=== PATIENT | female | born 1970 ===

== ENCOUNTER 2016-07-06 13:13 | Emergency (ER) | payer OTHER ==
[2016-07-06 13:20] VITALS: TEMP 98; O2SAT 99
[2016-07-06 14:33] LABS: BASO # 0.1 K/uL (0.0-0.2); BASO % 1.2 % (0.0-2.0); EOS # 0.1 K/uL (0.0-0.7); EOS % 1.7 % (0.0-4.0); HEMATOCRIT 38.2 % (34.0-47.0); LYMPH # 1.8 K/uL (1.0-4.3); LYMPH % 29.8 % (20.0-40.0); MEAN CELL VOLUME 94.1 fl (81.0-99.0); MEAN CORPUSCULAR HEMOGLOBIN 30.1 pg (27.0-31.0); MEAN PLATELET VOLUME 8.5 fl (7.2-11.7); MONO # 0.5 K/uL (0.0-0.8); MONO % 8.3 % (0.0-10.0); NEUT # 3.6 K/uL (1.8-7.0); NRBC % 0.1 % (0.0-0.0); RED CELL DISTRIBUTION WIDTH 13.8 % (11.5-14.5); WHITE BLOOD COUNT 6.2 K/uL (4.8-10.8)
[2016-07-06 14:44] LABS: ALB/GLOB RATIO 1.1 (1.0-2.1); ALKALINE PHOSPHATASE 60 U/L (38-126); ALT/SGPT 25 U/L (9-52); AST/SGOT 25 U/L (14-36); BILIRUBIN,TOTAL 0.5 mg/dl (0.2-1.3); BLOOD UREA NITROGEN 14 mg/dl (7-17); CALCIUM 9.4 mg/dL (8.4-10.2); CARBON DIOXIDE 25 mmol/L (22-30); CHLORIDE 104 mmol/L (98-107); GFR AFRICAN-AMERICAN > 60; GLUCOSE,RANDOM 84 mg/dL (65-105); POTASSIUM 3.8 MMOL/L (3.6-5.0); SODIUM 136 mmol/l (132-148); TOTAL PROTEIN 8.2 G/DL (6.3-8.2)
[2016-07-06 14:46] LABS: RBC URINE < 1 /hpf (0-3); URINE BILIRUBIN NEGATIVE (NEGATIVE); URINE BLOOD NEGATIVE (NEGATIVE); URINE COLOR STRAW (YELLOW); URINE GLUCOSE (UA) NEG (Normal); URINE KETONE NEGATIVE (NEGATIVE); URINE LEUKOCYTE ESTERASE NEG Leu/uL (Negative); URINE PROTEIN NEGATIVE (NEGATIVE); URINE UROBILINOGEN 0.2-1.0 mg/dL (0.2-1.0); WBC URINE < 1 /hpf (0-5)
--- NOTE | 2016-07-06 15:00 | ED PDOC ---
HPI: Abdomen Time Seen by Provider: 07/06/16 13:40 Chief Complaint (Nursing): Abdominal Pain Chief Complaint (Provider): ABDOMINAL PAIN History Per: Patient (46 Y/O FEMALE UNDOMICILED WITH INTERMITTENT LEFT LOWER QUADRANT PAIN ASSOCIATED WITH URINARY EFFORT X 4 WEEKS. DENIES ANY HEMATURIA/ FEVERS/CHILLS/VOMITING/DIARRHEA. PATIENT HAS BEEN SEEN BY [facility] SALES CLERK SUPERVISOR WITH PELVIC EXAM EVALUATION AND PRESCRIBED 1 WEEK OF ANTIBIOTICS (UNSURE OF NAME). PATIENT STATES SHE HAS H/O KIDNEY STONE WITH SUBSEQUENT LITHOTRIPSY AND CONCERNED SHE IS AFFLICTED WITH RENAL COLIC. OTHERWISE DENIES VAGINAL DISCHARGE /DENIES ANY RECENT NEW SEXUAL PARTNERS.) Past Medical History Reviewed: Historical Data, Nursing Documentation, Vital Signs Vital Signs: Last Vital Signs Temp 98.0 F 07/06/16 13:18 Pulse 80 07/06/16 13:18 Resp 19 07/06/16 13:18 BP 129/89 07/06/16 13:18 Pulse Ox 99 07/06/16 17:25 - Allergies Allergies/Adverse Reactions: Allergies Allergy/AdvReac Type Severity Reaction Status Date / Time prochlorperazine Allergy paralysis Verified 07/06/16 13:17 [From Compazine] prochlorperazine edisylate Allergy paralysis Verified 07/06/16 13:17 [From Compazine] prochlorperazine maleate Allergy paralysis Verified 07/06/16 13:17 [From Compazine] hair dye Allergy RASH Uncoded 07/06/16 13:17 opiates Allergy VOMITING Uncoded 07/06/16 13:17 Review of Systems ROS Statement: Except As Marked, All Systems Reviewed And Found Negative Physical Exam - Reviewed Nursing Documentation Reviewed: Yes Vital Signs Reviewed: Yes - Physical Exam Appears: Positive for: Well, Non-toxic, No Acute Distress Head Exam: Positive for: ATRAUMATIC, NORMAL INSPECTION, NORMOCEPHALIC Skin: Positive for: Normal Color, Warm, DRY Eye Exam: Positive for: EOMI, Normal appearance, PERRL ENT: Positive for: Normal ENT Inspection Neck: Positive for: Normal, Painless ROM Cardiovascular/Chest: Positive for: Regular Rate, Rhythm Respiratory: Positive for: CNT, Normal Breath Sounds Gastrointestinal/Abdominal: Positive for: Normal Exam, Bowel Sounds, Soft Pelvic Exam: Positive for: Tender Adnexa (?MINIMAL LEFT ADNEXAL TENDERNESS NOTED.) Back: Positive for: Normal Inspection. Negative for: L CVA Tenderness, R CVA Tenderness Extremity: Positive for: Normal ROM Neurologic/Psych: Positive for: Alert, Oriented - Laboratory Results Result Diagrams: 07/06/16 14:10 07/06/16 14:10 Urine POC: Negative Urine dip results: Negative for: Leukocyte Esterase, Blood, Nitrate, Ketones, Glucose, Bilirubin - ECG O2 Sat by Pulse Oximetry: 99 Medical Decision Making Medical Decision Makin:58 CT AP scan (aborted) PROCEDURE: Aborted CT scan HISTORY: r/o kidney stone Patient had barium swallow yesterday. Residual contrast. COMPARISON: None available. TECHNIQUE: CT scan could not be obtained. Community Resource Officer image shows contrast throughout the colon and appendix. Contrast would limit examination for renal calculi. Therefore, examination was not performed. 16:41 Abdomen Xray FINDINGS: BOWEL: Single supine radiograph of the abdomen was performed. Normal. No obstruction. No free air. Oral contrast is seen in the colon and appendix. No bowel dilatation is seen. BONES: Normal. OTHER FINDINGS: None. IMPRESSION: Oral contrast remains within the colon from patient's recent barium exam. 16:46 Renal ultrasound FINDINGS: RIGHT KIDNEY: Measures: 9.3 x 4.8 x 4.3 cm. Normal in size, contour and echogenicity. No stone, solid mass lesion or hydronephrosis visualized. LEFT KIDNEY: Measures: 9.8 x 4.3 x 4.6 cm. Left kidney is normal in overall size and echogenicity. There is evidence of a 2.3 centimeter x 2.3 centimeter by 2.2 centimeter hypoechoic cyst in the parapelvic area of the upper to midpole region of the right kidney. No solid lesions are seen. No renal calculus. There is some mild left renal pelvic fullness appreciated although no gross hydronephrosis is seen. OTHER FINDINGS: None. IMPRESSION: Left renal cyst. Mild left renal pelvic fullness without gross hydronephrosis. Kidneys are normal in size. 16:49 Transvaginal ultrasound FINDINGS: UTERUS: Measures 9.0 x 5.4 x 5.3 cm. Normal in size and appearance. Small 1.6 centimeter x 1.5 centimeter x 1.5 centimeter fundal fibroid is seen on the left side of the uterus. ENDOMETRIUM: Measures 7 mm in diameter. Unremarkable. CERVIX: No cervical abnormality identified. RIGHT OVARY: Measures 2.3 x 1.8 x 2.1 cm. Small probable follicular cyst is seen in the right ovary measuring 8 millimeters x 5 millimeters in size. Normal flow was seen in the right ovary. No fluid in the right side of the cul-de-sac. LEFT OVARY: Measures 4.6 x 2.8 x 2.6 cm. No solid mass. Normal flow. FREE FLUID: No significant free fluid noted. OTHER FINDINGS: None. IMPRESSION: Unremarkable pelvic ultrasound. Small fundal fibroid. Disposition - Clinical Impression Clinical Impression: Abdominal pain in female - Patient ED Disposition Is Patient to be Admitted: No - Disposition [facility] Disposition: Routine/Home Disposition Time: 17:14 Condition: FAIR Instructions: Pelvic Pain in Women (ED)
--- NOTE | 2016-07-06 16:00 | CT ---
PROCEDURE: Aborted CT scan HISTORY: r/o kidney stone Patient had barium swallow yesterday. Residual contrast. COMPARISON: None available. TECHNIQUE: CT scan could not be obtained. Corporate Securities Research Analyst image shows contrast throughout the colon and appendix. Contrast would limit examination for renal calculi. Therefore, examination was not performed. FINDINGS: IMPRESSION:
--- NOTE | 2016-07-06 16:43 | RAD ---
HISTORY: ABDOMINAL PAIN COMPARISON: No prior. FINDINGS: BOWEL: Single supine radiograph of the abdomen was performed. Normal. No obstruction. No free air. Oral contrast is seen in the colon and appendix. No bowel dilatation is seen. BONES: Normal. OTHER FINDINGS: None. IMPRESSION: Oral contrast remains within the colon from patient's recent barium exam.
--- NOTE | 2016-07-06 16:47 | US ---
PROCEDURE: Ultrasound of the Kidneys HISTORY: EVALUATE FOR HYDRONEPHROSIS COMPARISON: None available. TECHNIQUE: Sonogram of the kidneys. FINDINGS: RIGHT KIDNEY: Measures: 9.3 x 4.8 x 4.3 cm. Normal in size, contour and echogenicity. No stone, solid mass lesion or hydronephrosis visualized. LEFT KIDNEY: Measures: 9.8 x 4.3 x 4.6 cm. Left kidney is normal in overall size and echogenicity. There is evidence of a 2.3 centimeter x 2.3 centimeter by 2.2 centimeter hypoechoic cyst in the parapelvic area of the upper to midpole region of the right kidney. No solid lesions are seen. No renal calculus. There is some mild left renal pelvic fullness appreciated although no gross hydronephrosis is seen. OTHER FINDINGS: None. IMPRESSION: Left renal cyst. Mild left renal pelvic fullness without gross hydronephrosis. Kidneys are normal in size.
--- NOTE | 2016-07-06 16:50 | US ---
HISTORY: LEFT ADNEXAL PAIN COMPARISON: None available. TECHNIQUE: Real-time transvaginal ultrasound examination of the pelvis was performed. FINDINGS: UTERUS: Measures 9.0 x 5.4 x 5.3 cm. Normal in size and appearance. Small 1.6 centimeter x 1.5 centimeter x 1.5 centimeter fundal fibroid is seen on the left side of the uterus. ENDOMETRIUM: Measures 7 mm in diameter. Unremarkable. CERVIX: No cervical abnormality identified. RIGHT OVARY: Measures 2.3 x 1.8 x 2.1 cm. Small probable follicular cyst is seen in the right ovary measuring 8 millimeters x 5 millimeters in size. Normal flow was seen in the right ovary. No fluid in the right side of the cul-de-sac. LEFT OVARY: Measures 4.6 x 2.8 x 2.6 cm. No solid mass. Normal flow. FREE FLUID: No significant free fluid noted. OTHER FINDINGS: None. IMPRESSION: Unremarkable pelvic ultrasound. Small fundal fibroid.
[2016-07-06 17:50] VITALS: BP 124/78; PULSE 77; RESP 16
== END 2016-07-06 17:49 | disposition home or self-care (01) ==
LOC: H.ER 13:13
DX: D25.9 Leiomyoma of uterus, unspecified (principal); R10.2 Pelvic and perineal pain

== ENCOUNTER 2017-04-10 16:23 | Inpatient (IN) | payer MEDICAID, OTHER ==
--- NOTE | 2017-04-10 18:21 | ED PDOC ---
HPI: Headache Time Seen by Provider: 04/10/17 17:04 Chief Complaint (Nursing): Headache Chief Complaint (Provider): Headache History Per: Patient History/Exam Limitations: no limitations Onset/Duration Of Symptoms: Days (x4) Current Symptoms Are (Timing): Still Present Additional Complaint(s): Keny Mcnulty is a 46 year old female with no significant past medical history who presents to the ED due to right facial swelling x4 days. Patient states she woke up Friday with a swollen right eye, but did not think it was serious and attributed it to allergies. She says the following day, she woke up with her right cheek also swollen and the right side of her face felt funny. States she took allergy medication upon the recommendation of her roommate, and as of yesterday the swelling somewhat subsided, but still persists. Notes as of today she also has right arm and right leg pain in addition to a persistent headache all around her head. States it feels like she has a helmet squeezing her head. Denies fever, cough, runny nose, and sinus pain. Reports she had bad diarrhea a week ago that spontaneously resolved. PMD: None NIHSS Stroke Scale - Date/Time Evaluation Performed Date Performed: 04/10/17 Time Performed: 17:00 When Was NIHSS Performed: Baseline - How Severe is the Stroke Level of Consciousness: 0=Alert LOC to Questions: 0=Both comments correct LOC to commands: 0=Obeys both correctly Best Gaze: 0=Normal Visual: 0=No visual loss Facial: 1=Minor asymmetry Motor Arm - Left: 0=No drift Motor Arm - Right: 0=No drift Motor Leg - Left: 0=No drift Motor Leg - Right: 0=No drift Limb Ataxia: 0=Absent Sensory: 0=Normal Best Language: 0=No aphasia Dysarthia: 0=Normal articulation Extinction & Inattention (Neglect): 0=Normal, no object Score: 1 Past Medical History Reviewed: Historical Data, Nursing Documentation, Vital Signs Vital Signs: Last Vital Signs Temp 98.3 F 04/10/17 16:49 Pulse 82 04/10/17 16:49 Resp 16 04/10/17 16:49 BP 138/87 04/10/17 16:49 Pulse Ox 99 04/10/17 16:49 - Medical History PMH: No Chronic Diseases - Family History Family History: States: Unknown Family Hx - Social History Current smoker - smoking cessation education provided: No Alcohol: None Drugs: Denies - Home Medications Home Medications: Ambulatory Orders Medication Instructions Recorded Acetaminophen [Tylenol 325mg tab] 650 mg PO Q6 PRN tab 04/11/17 Magnesium Oxide [Mag-Ox] 400 mg PO BID #60 tab 04/11/17 - Allergies Allergies/Adverse Reactions: Allergies Allergy/AdvReac Type Severity Reaction Status Date / Time prochlorperazine Allergy paralysis Verified 07/06/16 13:17 [From Compazine] prochlorperazine edisylate Allergy paralysis Verified 07/06/16 13:17 [From Compazine] prochlorperazine maleate Allergy paralysis Verified 07/06/16 13:17 [From Compazine] hair dye Allergy RASH Uncoded 07/06/16 13:17 opiates Allergy VOMITING Uncoded 07/06/16 13:17 Review of Systems ROS Statement: Except As Marked, All Systems Reviewed And Found Negative Constitutional: Negative for: Fever Eyes: Positive for: Eyelid Inflammation (right) ENT: Positive for: Other (right cheek swelling). Negative for: Nose Pain, Nose Discharge Respiratory: Negative for: Cough Musculoskeletal: Positive for: Arm Pain (right), Leg Pain (right) Neurological: Positive for: Headache Physical Exam - Reviewed Nursing Documentation Reviewed: Yes Vital Signs Reviewed: Yes - Physical Exam Appears: Positive for: Non-toxic, No Acute Distress Head Exam: Positive for: ATRAUMATIC, NORMOCEPHALIC Skin: Positive for: Warm, Dry Eye Exam: Positive for: EOMI, PERRL ENT: Positive for: Pharynx Is (clear). Negative for: Pharyngeal Erythema, Tonsillar Exudate Neck: Positive for: Painless ROM, Supple Cardiovascular/Chest: Positive for: Regular Rate, Rhythm, Chest Non Tender Respiratory: Positive for: Normal Breath Sounds. Negative for: Wheezing Gastrointestinal/Abdominal: Positive for: Soft. Negative for: Tenderness Extremity: Positive for: Normal ROM. Negative for: Deformity Lymphatic: Negative for: Adenopathy Neurologic/Psych: Positive for: Alert, director of consumer affairs II-XII (intact), Oriented (x3), Gait (steady), Facial Droop (subtle RIGHT). Negative for: Motor/Sensory Deficits, Aphasia - Laboratory Results Result Diagrams: 04/11/17 04:20 04/11/17 04:20 - ECG ECG: Positive for: Interpreted By Mi ECG Rhythm: Positive for: Normal QRS, Normal ST Segment, Sinus Rhythm O2 Sat by Pulse Oximetry: 99 (RA) Pulse Ox Interpretation: Normal - Radiology X-Ray: Interpreted by Mi X-Ray Interpretation: No Acute Disease - Physician Consult Information Physician Contacted: Clifford De La Rosa (Neuro) Medical Decision Making Medical Decision Making: Time: 17:35 Initial Impression: Right facial swelling vs. weakness. Differential diagnoses include, but are not limited to [place] palsy, atypical migraine, brain malignancy, vasculitis --CT Head w/o contrast --CMP --Magnesium --Phosphorus --TSH --ED urine --ED urine dipstick --CBC w/ differential --IV insertion --Reevaluation Time: 20:02 CT Head Findings: BRAIN: Small 6 mm area of low density in the left posterior frontal subcortical white matter, image 50 of series 601. No significant acute abnormality identified. No acute hemorrhage seen within the brain. No acute extra-axial fluid collections visualized. No evidence of significant mass effect within the brain. Normal montague-white matter differentiation. VENTRICLES: No evidence of significant hydrocephalous. BONES/JOINTS: No acute fractures or other acute bony abnormality noted. SOFT TISSUES: No acute abnormality of the visualized soft tissues is seen. SINUSES: Visualized paranasal sinuses appear clear. MASTOID AIR CELLS: Mastoid air cells appear clear. IMPRESSION: -No acute findings seen within the brain. -Small left frontal white matter lesion. This is nonspecific in appearance, and could be secondary to mild chronic ischemic hangs. In a patient of this age, however, other etiologies of white matter disease, including demyelinating disease, are not excluded. Consider a non-emergent MRI of the brain for further workup, as clinically indicated. -See above for remaining findings. Labs unremarkable. DW pt findings and need for further inpatient evaluation. Pt may be having acute CVA or multiple sclerosis. Pt now reports that over the last year she has has intermittent episodes of different neurologic symptoms and twice made and missed appointment with neurologist. At this time need hospitalization for full workup and management for worsening acute symptoms. Scribe Attestation: Documented by Tomer Andersen acting as a scribe for Lynda Hager MD. Scribe Attestation: All medical record entries made by the Scribe were at my direction and personally dictated by me. I have reviewed the chart and agree that the record accurately reflects my personal performance of the history, physical exam, medical decision making, and the department course for this patient. I have also personally directed, reviewed, and agree with the discharge instructions and disposition. Disposition - Clinical Impression Clinical Impression: Weakness, Brain lesion Discussed With : Eriberto Martins Doctor Will See Patient In The: Hospital Counseled Patient/Family Regarding: Studies Performed, Diagnosis - Disposition Disposition Time: 20:30 Condition: GUARDED - Pt Status Changed To: Hospital Disposition Of: Inpatient - Admit Certification Admit to Inpatient:: After my assessment, the patient will require hospitalization for at least two midnights. This is because of the severity of symptoms shown, intensity of services needed, and/or the medical risk in this patient being treated as an outpatient. - POA Present On Arrival: None
[2017-04-10 18:48] LABS: BASO % 0.8 % (0.0-2.0); EOS # 0.2 K/uL (0.0-0.7); HEMOGLOBIN 12.8 g/dL (12.0-16.0); LYMPH # 1.4 K/uL (1.0-4.3); LYMPH % 24.7 % (20.0-40.0); MEAN CELL VOLUME 94.3 fl (81.0-99.0); MEAN CORPUSCULAR HEMOGLOBIN 31.2 pg (27.0-31.0); MEAN CORPUSCULAR HGB CONC 33.1 g/dL (33.0-37.0); MEAN PLATELET VOLUME 7.6 fl (7.2-11.7); MONO # 0.3 K/uL (0.0-0.8); MONO % 6.1 % (0.0-10.0); NEUT # 3.7 K/uL (1.8-7.0); NEUT % 64.4 % (50.0-75.0); RBC 4.11 Mil/uL (3.80-5.20); RED CELL DISTRIBUTION WIDTH 13.3 % (11.5-14.5); WHITE BLOOD COUNT 5.7 K/uL (4.8-10.8)
[2017-04-10 19:07] LABS: ALB/GLOB RATIO 1.2 (1.0-2.1); ALBUMIN 4.3 g/dL (3.5-5.0); ALT/SGPT 26 U/L (9-52); AST/SGOT 20 U/L (14-36); BLOOD UREA NITROGEN 12 mg/dl (7-17); CALCIUM 9.7 mg/dL (8.4-10.2); GFR AFRICAN-AMERICAN > 60; GFR NON-AFRICAN AMERICAN > 60
--- NOTE | 2017-04-10 20:02 | CT ---
EXAM: CT Head Without Intravenous Contrast EXAM DATE/TIME: 04/10/2017 5:35 PM CLINICAL HISTORY: 46 years old, female; Signs and symptoms; Weakness, facial; Additional info: Right face/arm/leg symptoms TECHNIQUE: Axial computed tomography images of the head/brain without intravenous contrast. All CT scans at this facility use one or more dose reduction techniques, viz.: automated exposure control; ma/kV adjustment per patient size (including targeted exams where dose is matched to indication; i.e. head); or iterative reconstruction technique. Coronal and sagittal reformatted images were created and reviewed. COMPARISON: No relevant prior studies available. FINDINGS: BRAIN: Small 6 mm area of low density in the left posterior frontal subcortical white matter, image 50 of series 601. No significant acute abnormality identified. No acute hemorrhage seen within the brain. No acute extra-axial fluid collections visualized. No evidence of significant mass effect within the brain. Normal montague-white matter differentiation. VENTRICLES: No evidence of significant hydrocephalus. BONES/JOINTS: No acute fractures or other acute bony abnormality noted. SOFT TISSUES: No acute abnormality of the visualized soft tissues is seen. SINUSES: Visualized paranasal sinuses appear clear. MASTOID AIR CELLS: Mastoid air cells appear clear. IMPRESSION: - No acute findings seen within the brain. - Small left frontal white matter lesion. This is nonspecific in appearance, and could be secondary to mild chronic ischemic changes. In a patient of this age, however, other etiologies of white matter disease, including demyelinating disease, are not excluded. Consider a non-emergent MRI of the brain for further workup, as clinically indicated. - See above for remaining findings.
[2017-04-10 21:30] LABS: BARBITURATES, UR NEGATIVE (NEGATIVE); BENZODIAZEPINES, UR NEGATIVE (NEGATIVE); OPIATES, UR NEGATIVE (NEGATIVE); PHENCYCLIDINE, UR NEGATIVE (NEGATIVE)
[2017-04-11 05:47] LABS: HEMOGLOBIN 11.8 g/dL (12.0-16.0); MEAN CELL VOLUME 94.3 fl (81.0-99.0); MEAN CORPUSCULAR HEMOGLOBIN 31.1 pg (27.0-31.0); MEAN CORPUSCULAR HGB CONC 32.9 g/dL (33.0-37.0); RBC 3.8 Mil/uL (3.80-5.20); RED CELL DISTRIBUTION WIDTH 13.2 % (11.5-14.5); WHITE BLOOD COUNT 5.8 K/uL (4.8-10.8)
[2017-04-11 05:50] LABS: ALB/GLOB RATIO 1.1 (1.0-2.1); ALBUMIN 3.7 g/dL (3.5-5.0); ALT/SGPT 25 U/L (9-52); AST/SGOT 19 U/L (14-36); BLOOD UREA NITROGEN 13 mg/dl (7-17); CALCIUM 9.3 mg/dL (8.4-10.2); GFR AFRICAN-AMERICAN > 60; GFR NON-AFRICAN AMERICAN > 60
--- NOTE | 2017-04-11 08:02 | RAD ---
HISTORY: admission COMPARISON: Chest radiographs 11/09/2013. TECHNIQUE: Chest PA and lateral FINDINGS: LUNGS: No active pulmonary disease. PLEURA: No significant pleural effusion identified. No pneumothorax apparent. CARDIOVASCULAR: Normal. OSSEOUS STRUCTURES: No significant abnormalities. VISUALIZED UPPER ABDOMEN: Normal. OTHER FINDINGS: None. IMPRESSION: No interval acute cardiopulmonary disease appreciated.
[2017-04-11] MEDS ORDERED: Gadodiamide 287 MG/ML VIAL (15ML) IV ONE ×2 (08:11→11:41)
[2017-04-11] MEDS ORDERED: Magnesium Sulfate 2 gm/50 ml 2 GM/50 ML BAG IVPB ONE ×2 (08:17→15:58)
[2017-04-11] MEDS ORDERED: Dexamethasone 10 MG in Sodium Chloride 0.9% 50 ML IV ONE ×2 (08:19→15:57)
[2017-04-11] MEDS ORDERED: Influenza Vaccine 18yr & older 0.5 ML/45 MCG SYR IM ONE (09:00)
[2017-04-11 10:14] LABS: T4 7.95 ug/dl (5.5-11.0)
[2017-04-11 10:28] LABS: T3 1.23 nmol/L (1.49-2.60)
--- NOTE | 2017-04-11 14:49 | CP.PCM.CON ---
History of Present Illness - History of Present Illness History of Present Illness: Ms. Mcnulty is a 46-year-old woman with a past medical history of migraine headaches, who presented to the ED with complaints of right facial swelling and right arm/leg numbness that had started several days ago and recently became associated with a severe headache that started on the right side and radiated to the left side in a "band-like" manner. Her numbness has now resolved and her headache is improved. The patient admits to having anxiety and depression in the past and was previously on Zoloft for "a long time", but stopped taking it about 1.5 months ago due to insurance issues. She has increased level of stress in her life. She complains of other intermittent neurological issues and lists them as follows: in the past she has had jaw clenching at night and resultant headaches in the morning; she has had right arm "curling" and stiffness that was difficult to overcome; she has had head twitching and tonic movements; her reflexes have become much more brisk with some spastic movements ; she has had urinary difficulty and was diagnosed with a form or urethritis. Review of Systems - Review of Systems All systems: reviewed and no additional remarkable complaints except Past Patient History - Infectious Disease Hx of Infectious Diseases: None - Past Medical History & Family History Past Medical History?: Yes - Past Social History Smoking Status: Never Smoked - CARDIAC Hx Cardiac Disorders: No - PULMONARY Hx Respiratory Disorders: No - NEUROLOGICAL Hx Neurological Disorder: No - HEENT Hx HEENT Problems: No - RENAL Hx Kidney Stones: Yes (kidney stone removal) - ENDOCRINE/METABOLIC Hx Endocrine Disorders: No - HEMATOLOGICAL/ONCOLOGICAL Hx Blood Disorders: No - INTEGUMENTARY Hx Dermatological Problems: No - MUSCULOSKELETAL/RHEUMATOLOGICAL Hx Musculoskeletal Disorders: No Hx Falls: No - GASTROINTESTINAL Hx Gastrointestinal Disorders: No - GENITOURINARY/GYNECOLOGICAL Hx Genitourinary Disorders: No - PSYCHIATRIC Hx Psychophysiologic Disorder: Yes Hx Depression: Yes (was on Zoloft) Hx Substance Use: No - SURGICAL HISTORY Hx Surgeries: Yes Other/Comment: kidney stone removal - ANESTHESIA Hx Anesthesia: Yes Hx Anesthesia Reactions: No Hx Malignant Hyperthermia: No Meds Allergies/Adverse Reactions: Allergies Allergy/AdvReac Type Severity Reaction Status Date / Time prochlorperazine Allergy paralysis Verified 07/06/16 13:17 [From Compazine] prochlorperazine edisylate Allergy paralysis Verified 07/06/16 13:17 [From Compazine] prochlorperazine maleate Allergy paralysis Verified 07/06/16 13:17 [From Compazine] hair dye Allergy RASH Uncoded 07/06/16 13:17 opiates Allergy VOMITING Uncoded 07/06/16 13:17 - Medications Medications: Current Medications Acetaminophen (Tylenol 325mg Tab) 650 mg PO Q6 PRN PRN Reason: Pain, moderate (4-7) Last Admin: 04/11/17 08:06 Dose: 650 mg Aspirin (Ecotrin) 81 mg PO DAILY RODOLFO Atorvastatin Calcium (Lipitor) 40 mg PO HS RODOLFO Morphine Sulfate (Morphine) 2 mg IVP Q4 PRN PRN Reason: Pain, severe (8-10) Physical Exam - Constitutional Appears: Well - Head Exam Head Exam: ATRAUMATIC, NORMAL INSPECTION, NORMOCEPHALIC - Eye Exam Eye Exam: EOMI, Normal appearance, PERRL - ENT Exam ENT Exam: Mucous Membranes Moist, Normal Exam - Neck Exam Neck exam: Positive for: Normal Inspection - Respiratory Exam Respiratory Exam: Clear to Auscultation Bilateral, NORMAL BREATHING PATTERN - Cardiovascular Exam Cardiovascular Exam: REGULAR RHYTHM, +S1, +S2 - GI/Abdominal Exam GI & Abdominal Exam: Normal Bowel Sounds, Soft. absent: Tenderness - Rectal Exam Rectal Exam: Deferred - Extremities Exam Extremities exam: Positive for: normal inspection - Back Exam Back exam: NORMAL INSPECTION - Neurological Exam Neurological exam: Alert, CN II-XII Intact, Normal Gait, Oriented x3 Additional comments: Brisk reflexes throughout. Plantar responses are downgoing bilaterally. Results - Vital Signs Recent Vital Signs: Last Vital Signs Temp 98.1 F 04/11/17 07:59 Pulse 72 04/11/17 09:00 Resp 18 04/11/17 07:59 BP 120/75 04/11/17 07:59 Pulse Ox 99 04/11/17 07:59 - Labs Result Diagrams: 04/11/17 04:20 04/11/17 04:20 Labs: Laboratory Results - last 24 hr 04/10/17 04/10/17 04/10/17 18:38 18:38 21:07 WBC 5.7 RBC 4.11 Hgb 12.8 Hct 38.7 MCV 94.3 MCH 31.2 H MCHC 33.1 RDW 13.3 Plt Count 258 MPV 7.6 Neut % (Auto) 64.4 Lymph % (Auto) 24.7 [place] % (Auto) 6.1 Eos % (Auto) 4.0 Baso % (Auto) 0.8 Neut # 3.7 Lymph # 1.4 [place] # 0.3 Eos # 0.2 Baso # 0.0 ESR Sodium 139 Potassium 4.5 Chloride 100 Carbon Dioxide 28 Anion Gap 16 BUN 12 Creatinine 0.7 Est GFR ( Amer) > 60 Est GFR (Non-Af Amer) > 60 Random Glucose 124 H Hemoglobin A1c Calcium 9.7 Phosphorus 4.1 Magnesium 2.0 Total Bilirubin 0.3 AST 20 ALT 26 Alkaline Phosphatase 51 Total Protein 8.0 Albumin 4.3 Globulin 3.7 Albumin/Globulin Ratio 1.2 Triglycerides Cholesterol LDL Cholesterol Direct HDL Cholesterol Vitamin B12 25-OH Vitamin D Total Thyroxine (T4) Total T3 TSH 3rd Generation 1.16 Urine Opiates Screen Negative Urine Methadone Screen Negative Ur Barbiturates Screen Negative Ur Phencyclidine Scrn Negative Ur Amphetamines Screen Negative U Benzodiazepines Scrn Negative U Oth Cocaine Metabols Negative U Cannabinoids Screen Negative 04/11/17 04/11/17 04/11/17 04:20 04:20 08:54 WBC 5.8 RBC 3.80 Hgb 11.8 L Hct 35.8 MCV 94.3 MCH 31.1 H MCHC 32.9 L RDW 13.2 Plt Count 244 MPV Neut % (Auto) Lymph % (Auto) [place] % (Auto) Eos % (Auto) Baso % (Auto) Neut # Lymph # [place] # Eos # Baso # ESR 13 Sodium 139 Potassium 3.9 Chloride 102 Carbon Dioxide 29 Anion Gap 12 BUN 13 Creatinine 0.8 Est GFR ( Amer) > 60 Est GFR (Non-Af Amer) > 60 Random Glucose 85 Hemoglobin A1c 4.9 Calcium 9.3 Phosphorus Magnesium Total Bilirubin 0.2 AST 19 ALT 25 Alkaline Phosphatase 46 Total Protein 6.9 Albumin 3.7 Globulin 3.2 Albumin/Globulin Ratio 1.1 Triglycerides Cholesterol LDL Cholesterol Direct HDL Cholesterol Vitamin B12 25-OH Vitamin D Total Thyroxine (T4) Total T3 TSH 3rd Generation 3.29 Urine Opiates Screen Urine Methadone Screen Ur Barbiturates Screen Ur Phencyclidine Scrn Ur Amphetamines Screen U Benzodiazepines Scrn U Oth Cocaine Metabols U Cannabinoids Screen 04/11/17 04/11/17 08:54 08:59 WBC RBC Hgb Hct MCV MCH MCHC RDW Plt Count MPV Neut % (Auto) Lymph % (Auto) [place] % (Auto) Eos % (Auto) Baso % (Auto) Neut # Lymph # [place] # Eos # Baso # ESR Sodium Potassium Chloride Carbon Dioxide Anion Gap BUN Creatinine Est GFR ( Amer) Est GFR (Non-Af Amer) Random Glucose Hemoglobin A1c Calcium Phosphorus Magnesium Total Bilirubin AST ALT Alkaline Phosphatase Total Protein Albumin Globulin Albumin/Globulin Ratio Triglycerides 61 Cholesterol 169 LDL Cholesterol Direct 74 HDL Cholesterol 62 Vitamin B12 289 25-OH Vitamin D Total 33.5 Thyroxine (T4) 7.95 Total T3 1.23 L TSH 3rd Generation 3.31 Urine Opiates Screen Urine Methadone Screen Ur Barbiturates Screen Ur Phencyclidine Scrn Ur Amphetamines Screen U Benzodiazepines Scrn U Oth Cocaine Metabols U Cannabinoids Screen Assessment & Plan (1) Trigeminal autonomic cephalgias Assessment and Plan: The swelling of the face and headache that is associated with other neurologic changes is consistent with either a migraine variant, or a trigeminal autonomic cephalgia/hemicrania. The patient has an appointment with an outpatient neurologist the first week of April and will follow up. She is currently asymptomatic. Neuroimaging is normal. No further recommendations at this time. Thank you. Status: Acute Priority: High
--- NOTE | 2017-04-11 14:55 | MRI ---
PROCEDURE: MRI BRAIN WITH AND WITHOUT CONTRAST HISTORY: right sided weakness, left brain lesion COMPARISON: Unenhanced head CT 04/10/2017. TECHNIQUE: Multiplanar, multisequence MR images of the brain were obtained with and without intravenous contrast enhancement. FINDINGS: HEMORRHAGE: None DWI: No evidence of an acute or early subacute infarction. BRAIN PARENCHYMA: Intrinsic signal throughout the [place] and white matter structures above below the tentorium includes appears within normal limits including the brainstem. There is no mass effect, parenchymal edema or loss of the corticomedullary differentiation. Midline brain anatomy appears within normal limits including the corpus callosum, brainstem and craniocervical junction. There is no suspicious extra-axial fluid collection identified. A small dilated perivascular space is appreciate the left temporal lobe posteriorly. ENHANCEMENT: No abnormal intracranial enhancement. VENTRICLES: Unremarkable. No hydrocephalus. CRANIUM: Unremarkable. ORBITS: Grossly unremarkable. PARANASAL SINUSES/MASTOIDS: Clear VASCULAR SYSTEM: Skull base flow voids intact. OTHER FINDINGS: None . IMPRESSION: A small dilated perivascular space in the left temporal lobe posteriorly with the remainder the brain unremarkable. No abnormal intracranial enhancement is appreciated throughout.
--- NOTE | 2017-04-11 15:01 | MRI ---
PROCEDURE: MR CERVICAL SPINE WITH AND WITHOUT CONTRAST HISTORY: right sided weakness, left brain lesion COMPARISON: None available. TECHNIQUE: Multiecho multiplanar sequences were performed through the cervical spine with and without the use of intravenous contrast. FINDINGS: Normal lordotic curvature. Craniocervical junction unremarkable. Vertebral body heights preserved. No marrow signal abnormality. The cerebellar tonsils are noted 6 mm inferior to the inferior osseous border of the foramen magnum compatible with oral occurring malformation. Minimal beaking of the cervicomedullary junction is appreciated. No paraspinal abnormality. No abnormal enhancement C2-3: No disc herniation, spinal canal stenosis or neural foraminal narrowing. C3-4: No disc herniation, spinal canal stenosis or neural foraminal narrowing. C4-5: No disc herniation, spinal canal stenosis or neural foraminal narrowing. C5-C6: No disc herniation, spinal canal stenosis or neural foraminal narrowing. C6-C7: No disc herniation, spinal canal stenosis or neuroforaminal narrowing. C7-T1: No disc herniation, spinal canal stenosis or neural foraminal narrowing. OTHER FINDINGS: None. IMPRESSION: Unremarkable pre and post contrast MRI of the cervical spine. Incidental Arnold-Chiari malformation.
--- NOTE | 2017-04-11 15:04 | MRI ---
PROCEDURE: Magnetic Resonance Angiography Brain HISTORY: headache right side weakness COMPARISON: None available. TECHNIQUE: 3D time of flight MR angiography of the intracranial arteries was performed. Rotating maximum intensity projection images were generated. FINDINGS: INTERNAL CAROTID ARTERIES: Unremarkable. The skull base, petrous, cavernous and supraclinoid segments are bilaterally widely patient. ANTERIOR CEREBRAL ARTERIES: Unremarkable. A1 and A2 segments are widely patent. Smaller distal branches unremarkable, as visualized. MIDDLE CEREBRAL ARTERIES: Unremarkable. M1 and M2 segments are widely patent. Perisylvian branches grossly symmetric. POSTERIOR CIRCULATION: Basilar Artery: Unremarkable. Distal Vertebral Arteries: Unremarkable. Posterior Cerebral Arteries: Unremarkable. Posterior Inferior Cerebellar Arteries: Unremarkable. ANEURYSM/ VASCULAR MALFORMATIONS: None. OTHER FINDINGS: None. IMPRESSION: Unremarkable MR angiography of the brain.
--- NOTE | 2017-04-11 15:05 | MRI ---
PROCEDURE: MR Angiography of the neck without contrast HISTORY: headache, right side weakness COMPARISON: None available. TECHNIQUE: 3D [id number] angiography of the neck was performed. Rotating maximum intensity projection images of the cervical carotid and vertebral arteries were generated. The origins of the common carotid arteries were not visualized, which is a limitation inherent to the non-contrast time of flight technique. FINDINGS: RIGHT CAROTID ARTERIES: Common Carotid Artery: Normal. Carotid Bifurcation: Normal. Internal Carotid Artery:Normal. External Carotid Artery (proximal branches): Normal. LEFT CAROTID ARTERIES: Common Carotid Artery: Normal. Carotid Bifurcation: Normal. Internal Carotid Artery:Normal. External Carotid Artery (proximal branches): Normal. VERTEBRAL ARTERIES: Right Vertebral Artery: Normal. Left Vertebral Artery: The distal most segment of the left vertebral artery approaching and traversing the skullbase through the foramen magnum appears to be persistent origin and is best seen on the source images. It is not seen in the reformatted 3D data sets. OTHER FINDINGS: None. IMPRESSION: Normal MR Angiography of the neck.
[2017-04-11 15:34] VITALS: RESP 20
--- NOTE | 2017-04-11 15:52 | CARD ---
APPROVED REPORT EKG Measurement Heart [id number] <Conclusion> Normal sinus rhythm Normal ECG
--- NOTE | 2017-04-11 17:48 | CP.PCM.HP ---
History of Present Illness - History of Present Illness History of Present Illness: CC: Right Facial Swelling HPI A 46 year old female with no significant past medical history who presents to the ED due to right facial swelling x4 days. Patient states she woke up Friday with a swollen right eye, but did not think it was serious and attributed it to allergies. She says the following day, she woke up with her right cheek also swollen and the right side of her face felt funny. States she took allergy medication upon the recommendation of her roommate, and as of 2 day back the swelling somewhat subsided, but still persists. Notes as of yesterday she also has right arm and right leg pain in addition to a persistent headache all around her head. States it feels like she has a helmet squeezing her head. Denies fever, cough, runny nose, and sinus pain. Reports she had bad diarrhea a week ago that spontaneously resolved. Today symptoms all subsided except a few residual feeling of facial swelling. Neurologist Sue appreciated, and recommended 1 dose of Solumedrol and Magnisium sulfate and to be discharged on PO Mag Ozxide 400mg BID for the KUHN, and Follow UP as an outpatient for Arnold Chiary Malformation at [facility]. Present on Admission - Present on Admission Any Indicators Present on Admission: No Review of Systems - Review of Systems All systems: reviewed and no additional remarkable complaints except Past Patient History - Infectious Disease Hx of Infectious Diseases: None - Past Medical History & Family History Past Medical History?: Yes Past Family History: Reviewed and not pertinent - Past Social History Smoking Status: Never Smoked Alcohol: None Drugs: Denies - CARDIAC Hx Cardiac Disorders: No - PULMONARY Hx Respiratory Disorders: No - NEUROLOGICAL Hx Neurological Disorder: No - HEENT Hx HEENT Problems: No - RENAL Hx Kidney Stones: Yes (kidney stone removal) - ENDOCRINE/METABOLIC Hx Endocrine Disorders: No - HEMATOLOGICAL/ONCOLOGICAL Hx Blood Disorders: No - INTEGUMENTARY Hx Dermatological Problems: No - MUSCULOSKELETAL/RHEUMATOLOGICAL Hx Musculoskeletal Disorders: No Hx Falls: No - GASTROINTESTINAL Hx Gastrointestinal Disorders: No - GENITOURINARY/GYNECOLOGICAL Hx Genitourinary Disorders: No - PSYCHIATRIC Hx Psychophysiologic Disorder: Yes Hx Depression: Yes (was on Zoloft) Hx Substance Use: No - SURGICAL HISTORY Hx Surgeries: Yes Other/Comment: kidney stone removal - ANESTHESIA Hx Anesthesia: Yes Hx Anesthesia Reactions: No Hx Malignant Hyperthermia: No Meds Home Medications: Home Medication List Medication Instructions Recorded Confirmed Type Acetaminophen [Tylenol 325mg tab] 650 mg PO Q6 PRN tab 04/11/17 Rx Magnesium Oxide [Mag-Ox] 400 mg PO BID #60 tab 04/11/17 Rx Allergies/Adverse Reactions: Allergies Allergy/AdvReac Type Severity Reaction Status Date / Time prochlorperazine Allergy paralysis Verified 07/06/16 13:17 [From Compazine] prochlorperazine edisylate Allergy paralysis Verified 07/06/16 13:17 [From Compazine] prochlorperazine maleate Allergy paralysis Verified 07/06/16 13:17 [From Compazine] hair dye Allergy RASH Uncoded 07/06/16 13:17 opiates Allergy VOMITING Uncoded 07/06/16 13:17 Physical Exam - Constitutional Appears: Well, No Acute Distress - Head Exam Head Exam: ATRAUMATIC, NORMAL INSPECTION, NORMOCEPHALIC - Eye Exam Eye Exam: EOMI, Normal appearance, PERRL Pupil Exam: NORMAL ACCOMODATION, PERRL - ENT Exam ENT Exam: Mucous Membranes Moist, Normal Exam - Neck Exam Neck exam: Positive for: Full Rom, Normal Inspection - Respiratory Exam Respiratory Exam: Clear to Auscultation Bilateral, NORMAL BREATHING PATTERN - Cardiovascular Exam Cardiovascular Exam: REGULAR RHYTHM, +S1, +S2 - GI/Abdominal Exam GI & Abdominal Exam: Normal Bowel Sounds, Soft. absent: Tenderness - Extremities Exam Extremities exam: Positive for: joint swelling, normal capillary refill, normal inspection - Back Exam Back exam: NORMAL INSPECTION - Neurological Exam Neurological exam: Alert, CN II-XII Intact, Normal Gait, Oriented x3, Reflexes Normal - Psychiatric Exam Psychiatric exam: Normal Affect, Normal Mood - Skin Skin Exam: Dry, Intact, Normal Color, Warm Results - Vital Signs Recent Vital Signs: Last Vital Signs Temp 98.4 F 04/11/17 15:33 Pulse 86 04/11/17 15:33 Resp 20 04/11/17 15:33 BP 115/73 04/11/17 15:33 Pulse Ox 96 04/11/17 15:33 - Labs Result Diagrams: 04/11/17 04:20 04/11/17 04:20 Labs: Laboratory Results - last 24 hr 04/10/17 04/10/17 04/10/17 18:38 18:38 21:07 WBC 5.7 RBC 4.11 Hgb 12.8 Hct 38.7 MCV 94.3 MCH 31.2 H MCHC 33.1 RDW 13.3 Plt Count 258 MPV 7.6 Neut % (Auto) 64.4 Lymph % (Auto) 24.7 [place] % (Auto) 6.1 Eos % (Auto) 4.0 Baso % (Auto) 0.8 Neut # 3.7 Lymph # 1.4 [place] # 0.3 Eos # 0.2 Baso # 0.0 ESR Sodium 139 Potassium 4.5 Chloride 100 Carbon Dioxide 28 Anion Gap 16 BUN 12 Creatinine 0.7 Est GFR ( Amer) > 60 Est GFR (Non-Af Amer) > 60 Random Glucose 124 H Hemoglobin A1c Calcium 9.7 Phosphorus 4.1 Magnesium 2.0 Total Bilirubin 0.3 AST 20 ALT 26 Alkaline Phosphatase 51 C-React Prot High Sens Total Protein 8.0 Albumin 4.3 Globulin 3.7 Albumin/Globulin Ratio 1.2 Triglycerides Cholesterol LDL Cholesterol Direct HDL Cholesterol Vitamin B12 25-OH Vitamin D Total Thyroxine (T4) Total T3 TSH 3rd Generation 1.16 Urine Opiates Screen Negative Urine Methadone Screen Negative Ur Barbiturates Screen Negative Ur Phencyclidine Scrn Negative Ur Amphetamines Screen Negative U Benzodiazepines Scrn Negative U Oth Cocaine Metabols Negative U Cannabinoids Screen Negative 04/11/17 04/11/17 04/11/17 04:20 04:20 08:54 WBC 5.8 RBC 3.80 Hgb 11.8 L Hct 35.8 MCV 94.3 MCH 31.1 H MCHC 32.9 L RDW 13.2 Plt Count 244 MPV Neut % (Auto) Lymph % (Auto) [place] % (Auto) Eos % (Auto) Baso % (Auto) Neut # Lymph # [place] # Eos # Baso # ESR 13 Sodium 139 Potassium 3.9 Chloride 102 Carbon Dioxide 29 Anion Gap 12 BUN 13 Creatinine 0.8 Est GFR ( Amer) > 60 Est GFR (Non-Af Amer) > 60 Random Glucose 85 Hemoglobin A1c 4.9 Calcium 9.3 Phosphorus Magnesium Total Bilirubin 0.2 AST 19 ALT 25 Alkaline Phosphatase 46 C-React Prot High Sens Total Protein 6.9 Albumin 3.7 Globulin 3.2 Albumin/Globulin Ratio 1.1 Triglycerides Cholesterol LDL Cholesterol Direct HDL Cholesterol Vitamin B12 25-OH Vitamin D Total Thyroxine (T4) Total T3 TSH 3rd Generation 3.29 Urine Opiates Screen Urine Methadone Screen Ur Barbiturates Screen Ur Phencyclidine Scrn Ur Amphetamines Screen U Benzodiazepines Scrn U Oth Cocaine Metabols U Cannabinoids Screen 04/11/17 04/11/17 04/11/17 08:54 08:59 09:45 WBC RBC Hgb Hct MCV MCH MCHC RDW Plt Count MPV Neut % (Auto) Lymph % (Auto) [place] % (Auto) Eos % (Auto) Baso % (Auto) Neut # Lymph # [place] # Eos # Baso # ESR Sodium Potassium Chloride Carbon Dioxide Anion Gap BUN Creatinine Est GFR ( Amer) Est GFR (Non-Af Amer) Random Glucose Hemoglobin A1c Calcium Phosphorus Magnesium Total Bilirubin AST ALT Alkaline Phosphatase C-React Prot High Sens 0.52 L Total Protein Albumin Globulin Albumin/Globulin Ratio Triglycerides 61 Cholesterol 169 LDL Cholesterol Direct 74 HDL Cholesterol 62 Vitamin B12 289 25-OH Vitamin D Total 33.5 Thyroxine (T4) 7.95 Total T3 1.23 L TSH 3rd Generation 3.31 Urine Opiates Screen Urine Methadone Screen Ur Barbiturates Screen Ur Phencyclidine Scrn Ur Amphetamines Screen U Benzodiazepines Scrn U Oth Cocaine Metabols U Cannabinoids Screen - Imaging and Cardiology MRI Brain: Status: Report reviewed by me Additional comment: PROCEDURE: MRI BRAIN WITH AND WITHOUT CONTRAST: HISTORY: right sided weakness, left brain lesion COMPARISON: Unenhanced head CT 04/10/2017. TECHNIQUE: Multiplanar, multisequence MR images of the brain were obtained with and without intravenous contrast enhancement. FINDINGS: HEMORRHAGE: None DWI: No evidence of an acute or early subacute infarction. BRAIN PARENCHYMA: Intrinsic signal throughout the [place] and white matter structures above below the tentorium includes appears within normal limits including the brainstem. There is no mass effect, parenchymal edema or loss of the corticomedullary differentiation. Midline brain anatomy appears within normal limits including the corpus callosum, brainstem and craniocervical junction. There is no suspicious extra-axial fluid collection identified. A small dilated perivascular space is appreciate the left temporal lobe posteriorlly. ENHANCEMENT: No abnormal intracranial enhancement. VENTRICLES: Unremarkable. No hydrocephalus. CRANIUM: Unremarkable. ORBITS: Grossly unremarkable. PARANASAL SINUSES/MASTOIDS: Clear VASCULAR SYSTEM:Skull base flow voids intact. OTHER FINDINGS: None . IMPRESSION: A small dilated perivascular space in the left temporal lobe posteriorly with the remainder the brain unremarkable. No abnormal intracranial enhancement is appreciated throughout. ADDENDUM: Incidental note is made of an Arnold-Chiari malformation in this patient. The cerebellar tonsils are 6 mm below [place]'s line at the foramen magnum. This is best demonstrated in the cervical spine MRI also performed 04/11/2017. [ Addendum Report Added by Tarik Dent MD at 04/11/2017 14:57:25 ] CT scan - head Status: Report reviewed by me Additional comment: IMPRESSION: - No acute findings seen within the brain. - Small left frontal white matter lesion. This is nonspecific in appearance, and could be secondary to mild chronic ischemic changes. In a patient of this age, however, other etiologies of white matter disease, including demyelinating disease, are not excluded. Consider a non-emergent MRI of the brain for further workup, as clinically indicated. - See above for remaining findings. MRI C-Spine: Status: Report reviewed by me Additional comment: IMPRESSION: Unremarkable pre and post contrast MRI of the cervical spine Incidental Arnold-Chiari malformation. Assessment & Plan (1) Trigeminal autonomic cephalgias Assessment and Plan: Arnold Chiary Syndrome MAg Sulfate IV in Progress Decadrone 10mg IV 1 dose Change to Obs and D/C home on Mg Ox 400mg BID Follow UP with neurologist, and Neurosurgery Follow Up MRI Annually as Per Neuro Rec D/W the patient Detail about all the findings from this Hospitalization Will D/C Home after IV meds Status: Acute Priority: High
[2017-04-11 20:04] VITALS: BP 126/83; PULSE 87; TEMP 98.6; O2SAT 99
--- NOTE | 2017-04-12 13:39 | CP.PCM.DIS ---
Provider - Provider Date of Admission: 04/10/17 20:55 Attending physician: Eriberto Martins MD Time Spent in preparation of Discharge (in minutes): 20 Diagnosis - Discharge Diagnosis (1) Trigeminal autonomic cephalgias Status: Acute Priority: Medium Comment: [facility] Hospital Course - Lab Results Lab Results: Most Recent Lab Values WBC 5.8 K/uL (4.8-10.8) 04/11/17 04:20 RBC 3.80 Mil/uL (3.80-5.20) 04/11/17 04:20 Hgb 11.8 g/dL (12.0-16.0) L 04/11/17 04:20 Hct 35.8 % (34.0-47.0) 04/11/17 04:20 MCV 94.3 fl (81.0-99.0) 04/11/17 04:20 MCH 31.1 pg (27.0-31.0) H 04/11/17 04:20 MCHC 32.9 g/dL (33.0-37.0) L 04/11/17 04:20 RDW 13.2 % (11.5-14.5) 04/11/17 04:20 Plt Count 244 K/uL (130-400) 04/11/17 04:20 MPV 7.6 fl (7.2-11.7) 04/10/17 18:38 Neut % (Auto) 64.4 % (50.0-75.0) 04/10/17 18:38 Lymph % (Auto) 24.7 % (20.0-40.0) 04/10/17 18:38 Hays % (Auto) 6.1 % (0.0-10.0) 04/10/17 18:38 Eos % (Auto) 4.0 % (0.0-4.0) 04/10/17 18:38 Baso % (Auto) 0.8 % (0.0-2.0) 04/10/17 18:38 Neut # 3.7 K/uL (1.8-7.0) 04/10/17 18:38 Lymph # 1.4 K/uL (1.0-4.3) 04/10/17 18:38 Hays # 0.3 K/uL (0.0-0.8) 04/10/17 18:38 Eos # 0.2 K/uL (0.0-0.7) 04/10/17 18:38 Baso # 0.0 K/uL (0.0-0.2) 04/10/17 18:38 ESR 13 mm/hr (0-20) 04/11/17 04:20 Sodium 139 mmol/l (132-148) 04/11/17 04:20 Potassium 3.9 MMOL/L (3.6-5.0) 04/11/17 04:20 Chloride 102 mmol/L (98-107) 04/11/17 04:20 Carbon Dioxide 29 mmol/L (22-30) 04/11/17 04:20 Anion Gap 12 (10-20) 04/11/17 04:20 BUN 13 mg/dl (7-17) 04/11/17 04:20 Creatinine 0.8 mg/dl (0.7-1.2) 04/11/17 04:20 Est GFR ( Amer) > 60 04/11/17 04:20 Est GFR (Non-Af Amer) > 60 04/11/17 04:20 Random Glucose 85 mg/dL (65-105) 04/11/17 04:20 Hemoglobin A1c 4.9 % (4.2-6.5) 04/11/17 08:54 Calcium 9.3 mg/dL (8.4-10.2) 04/11/17 04:20 Phosphorus 4.1 mg/dl (2.5-4.5) 04/10/17 18:38 Magnesium 2.0 MG/DL (1.6-2.3) 04/10/17 18:38 Total Bilirubin 0.2 mg/dl (0.2-1.3) 04/11/17 04:20 AST 19 U/L (14-36) 04/11/17 04:20 ALT 25 U/L (9-52) 04/11/17 04:20 Alkaline Phosphatase 46 U/L (38-126) 04/11/17 04:20 C-React Prot High Sens 0.52 mg/L (1.00-3.00) L 04/11/17 09:45 Total Protein 6.9 G/DL (6.3-8.2) 04/11/17 04:20 Albumin 3.7 g/dL (3.5-5.0) 04/11/17 04:20 Globulin 3.2 gm/dL (2.2-3.9) 04/11/17 04:20 Albumin/Globulin Ratio 1.1 (1.0-2.1) 04/11/17 04:20 Triglycerides 61 mg/DL (0-149) 04/11/17 08:54 Cholesterol 169 mg/dL (0-199) 04/11/17 08:54 LDL Cholesterol Direct 74 mg/dL (0-129) 04/11/17 08:54 HDL Cholesterol 62 MG/DL (30-70) 04/11/17 08:54 Vitamin B12 289 pg/mL (239-931) 04/11/17 08:54 25-OH Vitamin D Total 33.5 NG/ML (30.0-100.0) 04/11/17 08:59 Thyroxine (T4) 7.95 ug/dl (5.5-11.0) 04/11/17 08:54 Total T3 1.23 nmol/L (1.49-2.60) L 04/11/17 08:54 TSH 3rd Generation 3.31 mIU/ML (0.46-4.68) 04/11/17 08:54 Urine Opiates Screen Negative (NEGATIVE) 04/10/17 21:07 Urine Methadone Screen Negative (NEGATIVE) 04/10/17 21:07 Ur Barbiturates Screen Negative (NEGATIVE) 04/10/17 21:07 Ur Phencyclidine Scrn Negative (NEGATIVE) 04/10/17 21:07 Ur Amphetamines Screen Negative (NEGATIVE) 04/10/17 21:07 U Benzodiazepines Scrn Negative (NEGATIVE) 04/10/17 21:07 U Oth Cocaine Metabols Negative (NEGATIVE) 04/10/17 21:07 U Cannabinoids Screen Negative (NEGATIVE) 04/10/17 21:07 NINA Screen Negative (Negative) 04/11/17 04:20 Discharge Exam - Head Exam Head Exam: ATRAUMATIC, NORMAL INSPECTION, NORMOCEPHALIC Discharge Plan - Discharge Medications Prescriptions: Magnesium Oxide [Mag-Ox] 400 mg PO BID #60 tab - Follow Up Plan Condition: GUARDED Disposition: HOME/ ROUTINE Instructions: Weakness (ED), Weakness (GEN)
--- NOTE | 2017-04-26 17:48 | PCM.EEG ---
Electroencephalogram Report - Electroencephalogram Report Procedure Date: 04/11/17 Interpretation: Indication: Possible seizure. Medications were reviewed. Technical: This is a digitally recorded electroencephalogram. The international 10-20 electrode placement system is used for scalp electrode placement. Eighteen channels of scalp EEG are recorded Another channel was used for for ECG. The data are stored digitally and reviewed in reformatted montages for optimal display. Background: 9 to 10 hertz alpha activity was seen. Maximal over the posterior head region. These activities are symmetric on both sides. They attenuated with eye opening. Of note, there were two instances of right temporal lobe sharp wave discharges. Impression: This is an abnormal awake and drowsy EEG. Epileptiform discharge was seen. This can represent a potential seizure focus. Clinical correlation is needed.
== END 2017-04-11 20:50 | disposition home or self-care (01) | DRG 891 ==
LOC: H.ER 16:23 → H.ERHOLD 20:55 → H.TEL 22:22
PROVIDERS: ADMIT Internal Medicine; ATTEND Internal Medicine
PROC: 3E0234Z Introduction of Serum, Toxoid and Vaccine into Muscle, Percutaneous Approach (ICD-10-PCS; principal; 2017-04-11)
DX: G44.099 Other trigeminal autonomic cephalgias (TAC), not intractable (principal); G93.9 Disorder of brain, unspecified; Q07.00 Arnold-Chiari syndrome without spina bifida or hydrocephalus; Z23 Encounter for immunization

== ENCOUNTER 2018-09-06 01:22 | Emergency (ER) | payer MEDICAID ==
[2018-09-06 01:52] VITALS: TEMP 98.4; O2SAT 100
[2018-09-06] MEDS ORDERED: Sodium Chloride 0.9% 1,000 ML IV STA (02:10)
--- NOTE | 2018-09-06 02:11 | ED PDOC ---
HPI: Back Time Seen by Provider: 09/06/18 01:46 Chief Complaint (Nursing): Female Genitourinary Chief Complaint (Provider): Back Pain History Per: Patient History/Exam Limitations: no limitations Onset/Duration Of Symptoms: Hrs Current Symptoms Are (Timing): Still Present Additional Complaint(s): Patient is a 48 y/o female with a PMHx of kidney stones who presents to the ED for evaluation of right lower back pain onset earlier today. Patient complains of associative symptoms of vomiting, diarrhea, and decreased urination. Patient states after vomiting her pain reduced in severity from an 8/10 to a 5/10. Patient denies fever. Of note, patient had surgery to remove her last kidney stone back in 2010. PCP: Dr. Neftali Hawkins Past Medical History Reviewed: Historical Data, Nursing Documentation, Vital Signs Vital Signs: Last Vital Signs Temp 98.4 F 09/06/18 01:46 Pulse 78 09/06/18 01:46 Resp 16 09/06/18 01:46 BP 142/80 09/06/18 01:46 Pulse Ox 100 09/06/18 01:46 Primary Care Provider: Neftali Hawkins - Medical History PMH: Depression (was on Zoloft), Kidney Stones (kidney stone removal) - Surgical History Other surgeries: Kidney Stone Removal - Family History Family History: States: Unknown Family Hx - Home Medications Home Medications: Ambulatory Orders Medication Instructions Recorded Acetaminophen [Tylenol 325mg tab] 650 mg PO Q6 PRN tab 04/11/17 Magnesium Oxide [Mag-Ox] 400 mg PO BID #60 tab 04/11/17 Ciprofloxacin HCl [Cipro] 500 mg PO BID #14 tablet 09/06/18 Tamsulosin HCl [Flomax] 0.4 mg PO DAILY #30 cap.er.24h 09/06/18 - Allergies Allergies/Adverse Reactions: Allergies Allergy/AdvReac Type Severity Reaction Status Date / Time prochlorperazine Allergy paralysis Verified 02/04/18 09:47 [From Compazine] prochlorperazine edisylate Allergy paralysis Verified 02/04/18 09:47 [From Compazine] prochlorperazine maleate Allergy paralysis Verified 02/04/18 09:47 [From Compazine] hair dye Allergy RASH Uncoded 02/04/18 09:47 opiates Allergy VOMITING Uncoded 02/04/18 09:47 Review of Systems ROS Statement: Except As Marked, All Systems Reviewed And Found Negative Constitutional: Negative for: Fever Gastrointestinal: Positive for: Vomiting, Diarrhea Genitourinary Female: Positive for: Other (decreased urination) Musculoskeletal: Positive for: Back Pain (lower right) Physical Exam - Reviewed Nursing Documentation Reviewed: Yes Vital Signs Reviewed: Yes - Physical Exam Appears: Positive for: Non-toxic, No Acute Distress Head Exam: Positive for: ATRAUMATIC, NORMAL INSPECTION, NORMOCEPHALIC Skin: Positive for: Normal Color, Warm, DRY Eye Exam: Positive for: EOMI, Normal appearance, PERRL Neck: Positive for: Normal, Painless ROM, Supple Cardiovascular/Chest: Positive for: Regular Rate, Rhythm. Negative for: Murmur Respiratory: Positive for: Normal Breath Sounds. Negative for: Respiratory Distress Gastrointestinal/Abdominal: Positive for: Normal Exam, Soft. Negative for: Tenderness Back: Positive for: Normal Inspection, R CVA Tenderness. Negative for: L CVA Tenderness Extremity: Positive for: Normal ROM. Negative for: Pedal Edema, Deformity Neurological/Psych: Positive for: Alert, Oriented (x3) - Laboratory Results Result Diagrams: 09/06/18 02:24 09/06/18 02:24 - ECG O2 Sat by Pulse Oximetry: 100 (RA) Pulse Ox Interpretation: Normal Medical Decision Making Medical Decision Making: Time: 0209 Impression: Kidney Stone Plan: r/o Infection VBG CT Abd & Pelvis w/o PO or IV Contrast CMP CBC IV Fluids Toradol 30 mg IVP UA Time: 0416 FINDINGS: Mild right hydroureteronephrosis. Minimal fullness of the left collecting system. Mild diffuse thickening of the bladder. 3.1 cm left renal simple cyst. Uncomplicated colonic diverticulosis. Mild amount of fecal residue in the large bowel. The visualized lung bases are unremarkable. Normal unenhanced liver. Normal gallbladder and extrahepatic biliary system. Normal unenhanced spleen. Normal pancreas. Normal bilateral adrenal glands. Normal size of the right kidney. There is no right renal mass. There are no right renal calculi. There is no right hydronephrosis. Normal visualized right ureter. Normal size of the left kidney. There is no left renal mass. There are no left renal calculi. There is no left hydronephrosis. Normal visualized left ureter. Normal visualized stomach. Normal small intestine. Normal colon. The appendix is visualized and appears normal. There is no demonstrated peritoneal fluid. Normal abdominal aorta. Normal inferior vena cava. Normal retroperitoneum. There is no pelvic mass lesion or lymphadenopathy. There is no pelvic fluid. Normal abdominal wall. Normal osseous structures. IMPRESSION: Mild right hydroureteronephrosis. Recent passage of calculus versus an ascending urinary tract infection. Minimal fullness of the left collecting system. Possibly ascending urinary tract infection. Mild diffuse thickening of the bladder. Likely cystitis. 3.1 cm left renal simple cyst. Uncomplicated colonic diverticulosis. Mild amount of fecal residue in the large bowel. Electronically signed on September 06, 2018 4:16:42 AM EDT by: Allie Ray M.D., Certified by [facility], Neuroradiology Time: 444 Possible recent passage of stone vs pyelonephritis. Will start on Cipro and Flomax as well as Motrin for pain. Will give referral to Urologist. Return parameters discussed. Scribe Attestation: Documented by Bhavesh Greenwood, acting as a scribe Kati Anderson MD Provider Scribe Attestation: All medical record entries made by the Scribe were at my direction and personally dictated by me. I have reviewed the chart and agree that the record accurately reflects my personal performance of the history, physical exam, medical decision making, and the department course for this patient. I have also personally directed, reviewed, and agree with the discharge instructions and disposition. Disposition - Clinical Impression Clinical Impression: Renal stone - Disposition Referrals: Zacarias York Jr., MD [Staff Provider] - Disposition Time: 04:45 Condition: IMPROVED Additional Instructions: Take medication as prescribed. Take Motrin as needed every 6 hours for pain. Follow up with urologist for further evaluation. Return to the emergency department if symptoms worsen or of new symptoms develop. Prescriptions: Ciprofloxacin HCl [Cipro] 500 mg PO BID #14 tablet Tamsulosin HCl [Flomax] 0.4 mg PO DAILY #30 cap.er.24h Instructions: Kidney Stones (DC) Forms: [employer] ([place]an) Print Language: GUYANESE
[2018-09-06 02:42] LABS: BASO # 0.1 K/uL (0.0-0.2); EOS % 0.6 % (0.0-4.0); HEMOGLOBIN 11.5 g/dL (12.0-16.0); LYMPH # 1.3 K/uL (1.0-4.3); LYMPH % 20.2 % (20.0-40.0); MEAN CELL VOLUME 91.1 fl (81.0-99.0); MEAN CORPUSCULAR HEMOGLOBIN 30.6 pg (27.0-31.0); MEAN CORPUSCULAR HGB CONC 33.6 g/dL (33.0-37.0); MEAN PLATELET VOLUME 7.9 fl (7.2-11.7); MONO # 0.5 K/uL (0.0-0.8); MONO % 7.7 % (0.0-10.0); NEUT # 4.5 K/uL (1.8-7.0); NEUT % 70.5 % (50.0-75.0); RBC 3.75 Mil/uL (3.80-5.20); RED CELL DISTRIBUTION WIDTH 13.7 % (11.5-14.5); WHITE BLOOD COUNT 6.4 K/uL (4.8-10.8)
[2018-09-06 02:48] LABS: VENOUS BLOOD GAS BASE EXCESS 2.7 mmol/L (0.0-2.0); VENOUS BLOOD GAS PCO2 50 mmHg (40-60); VENOUS BLOOD GAS PO2 23 mm/Hg (30-55); VENOUS BLOOD PH 7.37 (7.32-7.43)
[2018-09-06 02:56] LABS: ALB/GLOB RATIO 1.3 (1.0-2.1); ALBUMIN 4.5 g/dL (3.5-5.0); ALT/SGPT 19 U/L (9-52); AST/SGOT 28 U/L (14-36); BLOOD UREA NITROGEN 17 mg/dl (7-17); CALCIUM 9.2 mg/dL (8.4-10.2); GFR NON-AFRICAN AMERICAN > 60
[2018-09-06 03:12] LABS: SQUAMOUS EPITHIAL 16 /hpf (0-5); URINE BACTERIA RARE (<OCC); URINE BILIRUBIN NEGATIVE (NEGATIVE); URINE BLOOD MODERATE (NEGATIVE); URINE CLARITY CLOUDY (Clear); URINE COLOR YELLOW (YELLOW); URINE GLUCOSE (UA) NEG (NEGATIVE); URINE LEUKOCYTE ESTERASE NEG Leu/uL (Negative); URINE PROTEIN 30 mg/dL (NEGATIVE); URINE UROBILINOGEN 0.2-1.0 mg/dL (0.2-1.0)
[2018-09-06 05:28] VITALS: BP 118/69; PULSE 80; RESP 18
--- NOTE | 2018-09-06 12:19 | CT ---
Date of service: 09/06/2018 PROCEDURE: CT Abdomen and Pelvis without intravenous contrast HISTORY: r/o right stone COMPARISON: None. TECHNIQUE: Without contrast.. Contrast dose: 0 Radiation dose: Total exam DLP = 388.45 mGy-cm. This CT exam was performed using one or more of the following dose reduction techniques: Automated exposure control, adjustment of the mA and/or kV according to patient size, and/or use of iterative reconstruction technique. FINDINGS: LOWER THORAX: Unremarkable. LIVER: Unremarkable. No gross lesion or ductal dilatation. GALLBLADDER AND BILE DUCTS: Unremarkable. PANCREAS: Unremarkable. No gross lesion or ductal dilatation. SPLEEN: Unremarkable. ADRENALS: Unremarkable. No mass. KIDNEYS AND URETERS: Mild right hydroureteronephrosis. No mass or calculus identified. Left upper pole parapelvic renal cyst, 3.5 cm. No left hydronephrosis. VASCULATURE: Unremarkable. No aortic aneurysm. No aortic atherosclerotic calcification or mural plaque present. BOWEL: Unremarkable. No obstruction. No gross mural thickening. APPENDIX: Not identified. No secondary findings. PERITONEUM: Unremarkable. No free fluid. No free air. LYMPH NODES: Unremarkable. No enlarged lymph nodes. BLADDER: Poorly distended. No gross abnormality. REPRODUCTIVE: Normal uterus BONES: No acute fracture. OTHER FINDINGS: None. IMPRESSION: Mild right hydroureteronephrosis without evidence of obstructing calculus. Left renal parapelvic cyst. No other significant abnormality. The preliminary findings for this examination were reported by [facility] at 4:16 a.m. on 09/06/2018. There is concurrence of this report with the preliminary findings.
== END 2018-09-06 05:05 | disposition home or self-care (01) ==
LOC: H.ER 01:22
DX: N20.0 Calculus of kidney (principal); Z86.59 Personal history of other mental and behavioral disorders; Z87.442 Personal history of urinary calculi; Z88.5 Allergy status to narcotic agent; Z88.8 Allergy status to other drugs, medicaments and biological substances
CPT/HCPCS: 74176; 80053; 81003; 81025; 82803; 85025; 96361; 96374; 99283; J1885; J7030